=== PATIENT | male | born 1935 | race Caucasian/White ===

== ENCOUNTER → 2019-12-29 14:38 | Outpatient (BNVA) | payer MEDICARE, MEDICAID, SELFPAY | PROVIDERS: Visit Provider Nurse Practitioner Family | DX: N40.1 Benign prostatic hyperplasia with lower urinary tract symptoms (principal) | CPT/HCPCS: 81001 ==

== ENCOUNTER → 2021-03-29 14:43 | Outpatient (BNVA) | payer MEDICARE, MEDICAID, SELFPAY | PROVIDERS: Visit Provider Nurse Practitioner Family | DX: N40.1 Benign prostatic hyperplasia with lower urinary tract symptoms (principal); R33.9 Retention of urine, unspecified | CPT/HCPCS: 81003; 87077; 87086; 87184 ==

== ENCOUNTER → 2021-08-29 13:37 | Outpatient (BNVA) | payer MEDICARE, MEDICAID, SELFPAY | PROVIDERS: Visit Provider Nurse Practitioner Family | DX: N40.1 Benign prostatic hyperplasia with lower urinary tract symptoms (principal); W19.XXXA Unspecified fall, initial encounter; M54.2 Cervicalgia; L98.9 Disorder of the skin and subcutaneous tissue, unspecified | CPT/HCPCS: 80053 ==

== ENCOUNTER 2021-08-30 11:57 | Outpatient (CLI) | payer MEDICARE, MEDICAID, SELFPAY ==
--- NOTE | 2021-08-30 12:17 | XR_ITS ---
WS: [id number] Cervical spine, 3 views, 08/30/2021 Clinical Data: neck pain Comparison: Cervical spine, 11/09/2010. Findings: No compression fractures are seen. There is degenerative disc narrowing at C5-C6 with anter ior and posterior osteoarthritic change. There is no prevertebral soft tissue swelling. The odontoid is unremarkable. The soft tissues of the neck and the lung apices are normal. 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
== END 2021-08-30 11:58 | disposition home or self-care (01) ==
PROVIDERS: Visit Provider Nurse Practitioner Family
DX: M54.2 Cervicalgia (principal)
CPT/HCPCS: 72040

== ENCOUNTER 2022-06-20 15:02 | Emergency (ER) | payer MEDICARE, MEDICAID, SELFPAY ==
--- NOTE | 2022-06-20 15:22 | XRR_ITS ---
PROCEDURE INFORMATION: Exam: XR Right Hip Exam date and time: 06/20/2022 4:14 PM Age: 86 years old Clinical indication: Hip pain; Right hip; Prior surgery; Surgery type: RT hip; Additional info: Right hip pain TECHNIQUE: Imaging protocol: Radiologic exam of the Right hip. Views: 1 view hip with pelvis when performed. COMPARISON: No relevant prior studies available. FINDINGS: Bones/joints: Intact right hip arthroplasty with cerclage wire in expected alignment. Partially visualized ORIF hardware in the mid right femur with a broken screw. No acute fracture. Soft tissues: Unremarkable. XR/XR hip RT 2-3V wo/w pel* [id number] IMPRESSION: Intact right hip arthroplasty in expected alignment. No acute osseous abnormalities. There is a partially visualized ORIF hardware in the mid femur with a broken screw.
[2022-06-20 16:44] VITALS: BP 127/68; PULSE 77; TEMP 36.7; O2SAT 98; BMI 25.8
--- NOTE | 2022-06-20 17:31 | ED_ITS ---
HPI - General Adult General: Chief complaint: General Medical Stated complaint: Right hip pain Time Seen by Provider: 06/20/22 17:30 History of Present Illness: 86-year-old male patient comes in today for right hip pain and discomfort. Patient does have a history of hip replacement on the right side. Patient reports that he had walked down a hill side that with about quarter mile to feed his cats. Patient had increased pain and discomfort afterwards. Patient appears nontoxic. Patient appears no acute distress. Patient denies any falls or new injuries. Review of Systems GI: Denies: abdominal pain Musc: Reports: joint pain (Right hip) [facility] ED PFS: Medical History (Updated 06/20/22 @ 17:40 by PEDRO Barraza) BPH loc w urin obs/LUTS Hematuria Urinary retention Surgical History H/O angioplasty S/P total hip arthroplasty Family History Family/Other Cancer Lung, Prostate CAD (coronary artery disease) Social History Smoking and tobacco status: never smoked Alcohol intake: never Marital status: Single Current occupational status: retired History of recent travel: No Physical Exam Const: COMMON NORMALS: alert HENMT: COMMON NORMALS: normocephalic HEAD & SCALP: normocephalic Neck/C-Spine: COMMON NORMALS: full ROM Resp: COMMON NORMALS: normal respiratory effort Cardio: COMMON NORMALS: regular rate RATE: regular rate Extremity: RIGHT LOWER EXTREMITY: Yes hip joint (Tenderness of the lateral hip, weightbearing) Right hip: Yes inspection, Yes palpation and Yes ROM Neuro: SENSORIUM/ORIENTATION: Yes alert Skin: COMMON NORMALS: turgor normal GENERAL SKIN EXAM: turgor normal Course Vital Signs: Vital signs: Vital Signs Temperature 98.1 F 06/20/22 16:44 Pulse Rate 77 06/20/22 16:44 Blood Pressure 127/68 06/20/22 16:44 Pulse Oximetry 98 06/20/22 16:44 Oxygen Delivery Me thod 06/20/22 16:44 MDM - General Adult Medical Decision Making 86-year-old male patient comes in today with complaints of right hip pain. On exam patient has tenderness to the lateral part of the right hip. Distal pulses and sensation are intact. No obvious deformity or dislocation is noted. Vital signs are normal. Differential diagnosis includes dislocation, fracture, t endinitis, arthritis. X-ray notes intact surgical hardware to the right hip. Feel the patient probably has tendinitis in the hip due to his walking down an incline. Patient most likely needs some chronic pain management due to his wanting to get out and feed his cats. We will go ahead and give patient 15 mg of Toradol to help with pain and inflammation. Patient was also written for some tramadol 50 mg twice a day for further pain relief and encouraged use acetaminophen. Patient reported understanding and agreed to plan. Lab Data Radiology Impressions Hip/Pelvis X-Ray 06/20/22 15:22 IMPRESSION: Intact right hip arthroplasty in expected alignment. No acute osseous abnormalities. There is a partially visualized ORIF hardware in the mid femur with a broken screw. Discharge Plan Discharge Patient Disposition: Home Clinical Impression: Hip tendinitis Qualifiers: Laterality: right Qualified Code(s): M76.891 - Other specified enthesopathies of right lower limb, excluding foot Condition: Stable Prescriptions: New tramadol 50 mg tablet 50 mg PO BID Qty: 14 0RF No Action ascorbic acid (vitamin C) 1,000 mg tablet 1,000 mg PO BID cephalexin 500 mg capsule 500 mg PO BID 10 Days Qty: 20 0RF methenamine hippurate 1 gram tablet See Rx Instructions .ROUTE .COMPLEX Qty: 60 12RF Dose Instruction: TAKE ONE TABLET BY MOUTH TWICE DAILY with 1000 MG of vitamin C Rx Instructions: TAKE ONE TABLET BY MOUTH TWICE DAILY with 1000 MG of vitamin C finasteride 5 mg tablet See Rx Instructions .ROUTE .COMPLEX Qty: 30 4RF Dose Instruction: TAKE ONE TABLET BY MOUTH EVERY DAY Rx Instructions: TAKE ONE TABLET BY MOUTH EVERY DAY tamsulosin 0.4 mg capsule See Rx Instructions .ROUTE .COMPLEX Qty: 60 3RF Dose Instruction: TAKE ONE CAPSULE BY MOUTH TWICE DAILY Rx Instructions: TAKE ONE CAPSULE BY MOUTH TWICE DAILY Discharge Orders: Discharge ED (Routine); Ordered 06/20/22 Ordered By: Cabrera Sargent Discharge Diet: Usual diet Discharge Activity: Increase activity as tolerated Patient Instructions: Pain Management Activity Restrictions/Additional Instructions: Use medication as directed for pain. You may use acetaminophen, Tylenol, also for pain. Drink plenty of water with medication. Follow-up with primary care for refills. Return to ED for new concerns. Coding Level of Care Code ED Equip Maint Eng for Fariba Garcia
[2022-06-20] MEDS: ketorolac 30 mg/mL INJ 15 MG IM (17:53)
[2022-06-20] MEDS: TRAMadol 50 mg Tablet PO (17:53)
[2022-06-20 18:10] VITALS: PULSE 81; RESP 16; O2SAT 97
== END 2022-06-20 18:35 | disposition home or self-care (01) ==
PROVIDERS: Emergency Provider Nurse Practitioner Family
DX: M76.891 Other specified enthesopathies of right lower limb, excluding foot (principal)
CPT/HCPCS: 73502; 96372; 99284; J1885